=== PATIENT | male | born 1990 | race Caucasian/White ===

== ENCOUNTER → 2019-05-28 11:23 | Outpatient (CLI) | payer OTHER, MEDICAID, SELFPAY ==
--- NOTE | 2019-05-28 11:26 | DI.RAD.S_ITS ---
PROCEDURE: XR ANKLE LT MIN 3V INDICATIONS: l ankle pain TECHNIQUE: 3 views of the ankle were acquired. COMPARISON: None. FINDINGS: Bones: No fractures or dislocations. Ankle mortise is normally aligned. No suspicious bony lesions. Soft tissues: No tibiotalar joint effusion. Achilles tendon appears normal. IMPRESSION: No acute fracture. No osseous lesion. If symptoms and/or clinical suspicion for pathology persist, further assessment with repeat, or advanced imaging (e.g., CT, MRI, or bone scan) may be helpful for further assessment. Dictated by: Yanique Martell M.D. on 05/28/2019 at 12:01 Approved by: Yanique Martell M.D. on 05/28/2019 at 12:03
--- NOTE | 2019-05-28 11:26 | DI.RAD.S_ITS ---
PROCEDURE: XR FOOT LT MIN 3V INDICATIONS: foot pain TECHNIQUE: 3 views of the foot were acquired. COMPARISON: None. FINDINGS: Bones: No fractures or dislocations. No suspicious bony lesions. Soft tissues: No tibiotalar joint effusion. Achilles tendon appears normal. IMPRESSION: No acute fracture. No osseous lesion. If symptoms and/or clinical suspicion for pathology persist, further assessment with repeat, or advanced imaging (e.g., CT, MRI, or bone scan) may be helpful for further assessment. Dictated by: Yanique Martell M.D. on 05/28/2019 at 12:00 Approved by: Yanique Martell M.D. on 05/28/2019 at 12:01
== END ==
PROVIDERS: Family Provider Family Medicine; PCP Family Medicine; Visit Provider Physician Assistant
DX: M79.672 Pain in left foot (principal); M25.572 Pain in left ankle and joints of left foot
CPT/HCPCS: 73610; 73630

== ENCOUNTER → 2019-09-09 10:44 | Outpatient (CLI) | payer OTHER, MEDICAID, SELFPAY ==
--- NOTE | 2019-09-09 10:48 | DI.RAD.S_ITS ---
PROCEDURE: XR ANKLE LT MIN 3V INDICATIONS: Swollen left ankle TECHNIQUE: 3 views of the ankle were acquired. COMPARISON: [facility], CR, XR ANKLE LT MIN 3V, 05/28/2019, 11:36. FINDINGS: Bones: No fractures or dislocations. Ankle mortise is normally aligned. No suspicious bony lesions. Soft tissues: No tibiotalar joint effusion. There is mild soft tissue edema of the left ankle, which appears greatest over the medial malleolus. IMPRESSION: Mild soft tissue edema of the left ankle. No acute fracture or dislocation of the left ankle identified. Consider followup radiographs in 7-10 days if there is continued clinical concern. Dictated by: Ubaldo Alvarado M.D. on 09/09/2019 at 13:36 Approved by: Ubaldo Alvarado M.D. on 09/09/2019 at 13:39
[2019-09-09 11:37] LABS: Add Manual Diff / Slide Review NO; Basophils Absolute Auto 100 /uL (0-100); Eosinophils Absolute Auto 400 /uL (0-450); Eosinophils Percent Auto 4.8 % (2-4); Hematocrit 42.4 % (41-53); Lymphocytes Absolute Auto 3100 /uL (1100-4500); Lymphocytes Percent Auto 40.3 % (25-40); Mean Corpuscular HGB Conc 35.4 % (30-36); Mean Corpuscular Hemoglobin 32.8 PG (26-34); Mean Corpuscular Volume 92.6 fL (80-100); Monocytes Absolute Auto 600 /uL (0-900); Monocytes Percent Auto 8.3 % (3-14); Neutrophils Absolute Auto 3500 /uL (1500-7000); Neutrophils Percent Auto 45.6 % (50-75); Platelet Count 312 X10^3/uL (150-400); Red Blood Cell Count 4.58 X10^6/uL (4.5-5.9); Red Cell Distribution Width 12.6 % (11.6-14.8); White Blood Cell Count 7.6 X10^3/uL (4.5-11.0)
[2019-09-09 11:52] LABS: Erythrocyte Sedimentation Rate 14 MM/HR (0-15)
[2019-09-09 11:55] LABS: Alanine Aminotransferase 74 IU/L (<50); Albumin 4.9 g/dL (3.5-5.0); Albumin Globulin Ratio 1.3 (1.0-2.8); Alkaline Phosphatase 86 U/L (38-126); Aspartate Aminotransferase 55 IU/L (17-59); BUN Creatinine Ratio 14.4 (6-22); Bilirubin Total 0.6 mg/dL (0.2-1.3); Blood Urea Nitrogen 13 mg/dL (9-20); Calcium 9.8 mg/dL (8.4-10.2); Carbon Dioxide 27 mmol/L (22-32); Chloride 101 mmol/L (98-107); Estimated Glomerular Filt Rate > 60.0 mL/min (>60); Globulin 3.8 g/dL (1.7-4.1); Glucose 95 mg/dL (70-100); HDL Cholesterol 49 mg/dL (40-60); Potassium 3.8 mmol/L (3.4-5.1); Sodium 140 mmol/L (137-145); Total Protein 8.7 g/dL (6.3-8.2); Triglycerides 429 mg/dL (35-150); Uric Acid 8.7 mg/dL (3.5-8.5)
[2019-09-09 11:56] LABS: Hemoglobin A1C% w Est Avg Glu 4.8 % (4.0-6.0)
[2019-09-09 12:00] LABS: HEMOLYSIS < 15 (0-50)
[2019-09-09 12:15] LABS: Cholesterol 328 mg/dL (140-199)
== END ==
PROVIDERS: PCP Family Medicine; Visit Provider Family Medicine
DX: M10.9 Gout, unspecified (principal); Z13.1 Encounter for screening for diabetes mellitus; Z13.220 Encounter for screening for lipoid disorders; Z13.228 Encounter for screening for other metabolic disorders; R60.0 Localized edema
CPT/HCPCS: 36415; 73610; 80053; 80061; 83036; 84550; 85025; 85651

== ENCOUNTER → 2020-02-26 11:51 | Outpatient (CLI) | payer OTHER, MEDICAID, SELFPAY ==
[2020-02-26 13:05] LABS: Erythrocyte Sedimentation Rate 13 MM/HR (0-15)
[2020-02-26 13:30] LABS: Alanine Aminotransferase 66 IU/L (<50); Albumin 4.9 g/dL (3.5-5.0); Albumin Globulin Ratio 1.5 (1.0-2.8); Alkaline Phosphatase 71 U/L (38-126); Aspartate Aminotransferase 50 IU/L (17-59); BUN Creatinine Ratio 14.6 (6-22); Bilirubin Total 0.7 mg/dL (0.2-1.3); Blood Urea Nitrogen 13 mg/dL (9-20); Calcium 9.9 mg/dL (8.4-10.2); Carbon Dioxide 24 mmol/L (22-32); Chloride 103 mmol/L (98-107); Cholesterol 298 mg/dL (140-199); Estimated Glomerular Filt Rate > 60.0 mL/min (>60); Globulin 3.3 g/dL (1.7-4.1); Glucose 97 mg/dL (70-100); HDL Cholesterol 52 mg/dL (40-60); HEMOLYSIS < 15 (0-50); LDL Cholesterol Calculated 196 mg/dL (<100); Potassium 3.8 mmol/L (3.4-5.1); Sodium 140 mmol/L (137-145); Total Protein 8.2 g/dL (6.3-8.2); Triglycerides 250 mg/dL (35-150); Uric Acid 6.2 mg/dL (3.5-8.5)
== END ==
PROVIDERS: PCP Family Medicine; Referring Provider Family Medicine; Visit Provider Family Medicine
DX: E78.5 Hyperlipidemia, unspecified (principal); M10.9 Gout, unspecified
CPT/HCPCS: 36415; 80053; 80061; 84550; 85651

== ENCOUNTER → 2021-09-29 14:07 | Outpatient (CLI) | payer OTHER, MEDICAID, SELFPAY ==
[2021-09-29 15:26] LABS: COVID19 -Nasal RAPID POSITIVE (Negative)
== END ==
PROVIDERS: PCP Family Medicine; Referring Provider Nurse Practitioner Family; Visit Provider Nurse Practitioner Family
DX: U07.1 COVID-19 (principal); Z20.822 Contact with and (suspected) exposure to COVID-19; R50.9 Fever, unspecified
CPT/HCPCS: 87635

== ENCOUNTER → 2023-09-14 15:46 | Outpatient (CLI) | payer OTHER, MEDICAID, SELFPAY ==
--- NOTE | 2023-09-14 15:48 | DI.US.S_ITS ---
PROCEDURE: US SCROTUM INDICATIONS: eval mass TECHNIQUE: Real-time scanning was performed of the scrotum and testicles, with image documentation. Color and pulse Doppler interrogation was performed of both testicles. COMPARISON: None. FINDINGS: Right: Testicle is normal in size at 3.9 x 3.3 x 2 point cm, and homogenous in echotexture. Epididymis is normal in overall size and morphology. Large right scrotal fluid collection which contains echogenic material. No varicoceles. Overlying scrotal skin is normal in thickness. Left: Testicle is normal in size at 4.3 x 2.3 x 3.2 cm, and homogeneous in echotexture. Epididymis is normal in overall size and morphology. No hydrocele or varicoceles. Overlying scrotal skin is normal in thickness. Doppler: Color and pulse Doppler demonstrate normal and symmetric arterial flow in both testicles. IMPRESSION: No evidence of testicular torsion. Large right scrotal hydrocele versus pyocele. Please correlate with clinical findings. Dictated by: Imelda Yost MD, PhD on 09/14/2023 at 16:34 Approved by: Imelda Yost MD, PhD on 09/14/2023 at 16:36
== END ==
PROVIDERS: PCP Family Medicine; Referring Provider Family Medicine; Visit Provider Family Medicine
DX: N50.89 Other specified disorders of the male genital organs (principal)
CPT/HCPCS: 76870

== ENCOUNTER → 2024-03-18 14:14 | Outpatient (CLI) | payer OTHER, MEDICAID, SELFPAY ==
--- NOTE | 2024-03-18 14:15 | DI.US.S_ITS ---
PROCEDURE: US SCROTUM INDICATIONS: HYDROCELE TECHNIQUE: Real-time scanning was performed of the scrotum and testicles, with image documentation. Color and pulse Doppler interrogation was performed of both testicles. COMPARISON: [facility], , US SCROTUM, 09/14/2023, 16:04. FINDINGS: Right: Testicle is normal in size at 4.3 x 3.0 x 2.4 cm, and homogenous in echotexture. Epididymis is normal in overall size and morphology. Moderate right-sided hydrocele containing fine echogenic debris and a thickened septation. Overlying scrotal skin is normal in thickness. Left: Testicle is normal in size at 3.7 x 2.1 x 3.4 cm, and homogeneous in echotexture. Epididymis is normal in overall size and morphology. No hydrocele or varicoceles. Overlying scrotal skin is normal in thickness. Doppler: Color and pulse Doppler demonstrate normal and symmetric arterial flow in both testicles. IMPRESSION: Stable moderate right-sided, moderately complex hydrocele. Dictated by: Anthony Barone M.D. on 03/18/2024 at 16:54 Approved by: Anthony Barone M.D. on 03/18/2024 at 16:55
== END ==
PROVIDERS: PCP Family Medicine; Referring Provider Physician Assistant; Visit Provider Physician Assistant
DX: N43.3 Hydrocele, unspecified (principal)
CPT/HCPCS: 76870